=== PATIENT | female | born 1955 | race Caucasian/White ===

== ENCOUNTER 2019-03-11 08:14 | Emergency (ER) | payer OTHER ==
--- NOTE | 2019-03-11 08:29 | RAD ---
PQRS Compliance Statement: One or more of the following individualized dose reduction techniques were utilized for this examination: 1. Automated exposure control 2. Adjustment of the mA and/or kV according to patient size 3. Use of iterative reconstruction technique CT head without contrast 03/11/2019 8:11 AM INDICATION: Lower extremity numbness COMPARISON: None available TECHNIQUE: Multiple axial CT images of the head were obtained from skull base through the vertex without intravenous contrast. FINDINGS: Head: Ventricles, sulci and basal cisterns are within normal limits. There is no hydrocephalus. Maradiaga-white matter differentiation is normal. There is no acute intracranial hemorrhage. There is no mass, mass effect or midline shift. Posterior fossa is normal in appearance. Visualized portions of the orbits are normal. Paranasal sinuses are well aerated. Mastoid air cells are well aerated. Scalp and calvaria are normal. IMPRESSION: No acute intracranial hemorrhage. FOR INTERNAL CODING PURPOSES Critical result: Findings discussed with ERIKA URIARTE at 03/11/2019 8:26 AM. RESULT CODE: (C) Electronically signed by: July Andres MD (03/11/2019 8:26 AM) [facility]
--- NOTE | 2019-03-11 08:42 | PHYS DOC ---
Past Medical History Past Medical History: CVA, Hypertension, Migraines, Seizure Past Surgical History: No Surgical History Alcohol Use: None Drug Use: None Adult General Chief Complaint Chief Complaint: NEURO SYMPTOMS/DEFICITS [facility] HPI Patient is a 63 year old female who presents via EMS with complaining of bilateral lower extremity numbness and right upper extremity weakness. 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 Patient treated with 81 mg of aspirin at 0730 and 911 was called. Patient stated her lower extremity tingling resolved but still continuing to have weakness of right upper extremity. Patient states she had history of migraine headache and headache yesterday but did not have headache today. Patient states she had history of CVA, hypertension, dyslipidemia. Code stroke was activated at arrival of patient in the ER. Review of Systems Review of Systems Constitutional: Denies fever or chills [] Eyes: Denies change in visual acuity, redness, or eye pain [] HENT: Denies nasal congestion or sore throat [] Respiratory: Denies cough or shortness of breath [] Cardiovascular: No additional information not addressed in HPI [] GI: Denies abdominal pain, nausea, vomiting, bloody stools or diarrhea [] : Denies dysuria or hematuria [] Musculoskeletal: Denies back pain or joint pain [] Integument: Denies rash or skin lesions [] Neurologic: Denies headache, reports focal weakness ,sensory changes [] Endocrine: Denies polyuria or polydipsia [] All other systems were reviewed and found to be within normal limits, except as documented in this note. Current Medications Current Medications Current Medications Medications (Trade) Dose Ordered Sig/[facility] Start Time Stop Time Status Last Admin Dose Admin Aspirin (Children'S Aspirin) 243 mg 1X ONCE 03/11/19 09:30 03/11/19 09:31 DC 03/11/19 08:48 243 MG Allergies Allergies Allergies Coded Allergies Type Severity Reaction Last Updated Verified No Known Drug Allergies 03/11/19 No Physical Exam Physical Exam Constitutional: Well developed, well nourished, mild distress, non-toxic appearance. [] HENT: Normocephalic, atraumatic. Eyes: PERRLA, EOMI, conjunctiva normal, no discharge. [] Neck: Normal range of motion, no tenderness, supple, no stridor. [] Cardiovascular:Heart rate regular rhythm, no murmur [] Lungs & Thorax: Bilateral breath sounds clear to auscultation [] Abdomen: Bowel sounds normal, soft, no tenderness, no masses, no pulsatile masses. [] Skin: Warm, dry, no erythema, no rash. [] Back: No tenderness, no CVA tenderness. [] Extremities: No tenderness, no cyanosis, no clubbing, ROM intact, no edema. [] Neurologic: Alert and oriented X 3, no focal deficits noted. [] Psychologic: Affect normal, judgement normal, mood normal. [] Current Patient Data Vital Signs Vital Signs Date Time Temp Pulse Resp B/P (MAP) Pulse Ox O2 Delivery O2 Flow Rate FiO2 03/11/19 09:22 72 18 100 03/11/19 08:14 97.0 169/92 (117) Room Air 97.0 Lab Values Laboratory Tests Test 03/11/19 08:28 03/11/19 08:30 Glucose (Fingerstick) 109 mg/dL (70-99) H White Blood Count 4.6 x10^3/uL (4.0-11.0) Red Blood Count 4.04 x10^6/uL (3.50-5.40) Hemoglobin 13.1 g/dL (12.0-15.5) Hematocrit 39.0 % (36.0-47.0) Mean Corpuscular Volume 97 fL (79-100) Mean Corpuscular Hemoglobin 32 pg (25-35) Mean Corpuscular Hemoglobin Concent 34 g/dL (31-37) Red Cell Distribution Width 13.4 % (11.5-14.5) Platelet Count 176 x10^3/uL (140-400) Neutrophils (%) (Auto) 52 % (31-73) Lymphocytes (%) (Auto) 36 % (24-48) Monocytes (%) (Auto) 10 % (0-9) H Eosinophils (%) (Auto) 2 % (0-3) Basophils (%) (Auto) 1 % (0-3) Neutrophils # (Auto) 2.4 x10^3/uL (1.8-7.7) Lymphocytes # (Auto) 1.6 x10^3/uL (1.0-4.8) Monocytes # (Auto) 0.4 x10^3/uL (0.0-1.1) Eosinophils # (Auto) 0.1 x10^3/uL (0.0-0.7) Basophils # (Auto) 0.0 x10^3/uL (0.0-0.2) Prothrombin Time 12.8 SEC (11.7-14.0) Prothrombin Time INR 1.0 (0.8-1.1) Activated Partial Thromboplast Time 26 SEC (24-38) Sodium Level 145 mmol/L (136-145) Potassium Level 3.9 mmol/L (3.5-5.1) Chloride Level 106 mmol/L (98-107) Carbon Dioxide Level 27 mmol/L (21-32) Anion Gap 12 (6-14) Blood Urea Nitrogen 18 mg/dL (7-20) Creatinine 1.1 mg/dL (0.6-1.0) H Estimated GFR (Cockcroft-Gault) 50.3 BUN/Creatinine Ratio 16 (6-20) Glucose Level 108 mg/dL (70-99) H Calcium Level 9.3 mg/dL (8.5-10.1) Magnesium Level 2.1 mg/dL (1.8-2.4) Total Bilirubin 0.4 mg/dL (0.2-1.0) Aspartate Amino Transferase (AST) 16 U/L (15-37) Alanine Aminotransferase (ALT) 15 U/L (14-59) Alkaline Phosphatase 65 U/L (46-116) Creatine Kinase 119 U/L (26-192) Troponin I Quantitative < 0.017 ng/mL (0.000-0.055) Total Protein 7.1 g/dL (6.4-8.2) Albumin 4.2 g/dL (3.4-5.0) Albumin/Globulin Ratio 1.4 (1.0-1.7) Laboratory Tests 03/11/19 08:30 Laboratory Tests 03/11/19 08:30 EKG EKG EKG interpreted by me. Showed normal sinus rhythm at rate of 74, left atrial abnormality, normal OH and QT interval as, no acute ST and T-wave abnormalities. Radiology/Procedures Radiology/Procedures [][facility] [address] [place] [address] IMAGING REPORT Signed PATIENT: DEANN SMART ACCOUNT: [id number] : 1955 LOCATION: ER AGE: 63 SEX: F EXAM STATUS: PRE ER ORD. PHYSICIAN: ERIKA URIARTE MD REASON: lower extremity numbness ED EXT 4180 PROCEDURE: CT CODE STROKE HEAD WO PQRS Compliance Statement: One or more of the following individualized dose reduction techniques were utilized for this examination: 1. Automated exposure control 2. Adjustment of the mA and/or kV according to patient size 3. Use of iterative reconstruction technique CT head without contrast 03/11/2019 8:11 AM INDICATION: Lower extremity numbness COMPARISON: None available TECHNIQUE: Multiple axial CT images of the head were obtained from skull base through the vertex without intravenous contrast. FINDINGS: Head: Ventricles, sulci and basal cisterns are within normal limits. There is no hydrocephalus. Maradiaga-white matter differentiation is normal. There is no acute intracranial hemorrhage. There is no mass, mass effect or midline shift. Posterior fossa is normal in appearance. Visualized portions of the orbits are normal. Paranasal sinuses are well aerated. Mastoid air cells are well aerated. Scalp and calvaria are normal. IMPRESSION: No acute intracranial hemorrhage. FOR INTERNAL CODING PURPOSES Critical result: Findings discussed with ERIKA URIARTE at 03/11/2019 8:26 AM. RESULT CODE: (C) Electronically signed by: Oliver Antonio MD (03/11/2019 8:26 AM) [facility] DICTATED and SIGNED BY: OLIVER ANTONIO MD DATE: 03/11/19 0826 Course & Med Decision Making Course & Med Decision Making Pertinent Labs and Imaging studies reviewed. (See chart for details) Evaluation of patient in ER showed 64-year-old female patient brought in by EMS because of acute focal neuro deficit with activation of code stroke. Patient had NIHS 0 and was not a candidate for TPA. Patient symptoms resolved arrival to ER. Patient had unremarkable physical exam and labs and CT head and felt better. Patient feels comfortable to go home. Patient was advised to follow-up with on-call neurologist. Dragon Disclaimer Dragon Disclaimer This electronic medical record was generated, in whole or in part, using a voice recognition dictation system. Departure Departure Impression: Primary Impression: TIA (transient ischemic attack) Disposition: 01 HOME, SELF-CARE (at 1000) Condition: IMPROVED Referrals: CASSANDRA BUCIO MD Patient Instructions: Transient Ischemic Attack Additional Instructions: Drink plenty of liquids Follow-up with your primary care physician in 3-5 days Return to ER if not getting better Follow-up with on-call neurologist in 2 or 3 days NIHSS Stroke Scale NIH Stroke Scale: NIH Stroke Scale Response (Comments) Value Level of Consciousness: 0 Alert/Responsive 0 LOC Questions: 0 Answers both correctly 0 LOC Commands: 0 Performs both tasks 0 Best Gaze: 0 Normal 0 Visual: 0 No visual loss 0 Facial Palsy: 0 Normal, symmetrical 0 Motor - Left Arm 0 No drift 0 Motor - Right Arm 0 No drift 0 Motor - Left Leg 0 No drift 0 Motor: Right Leg 0 No drift 0 Limb Ataxia: 0 Absent 0 Sensory: 0 No loss 0 Best Language: 0 Normal 0 Dysathria: 0 Normal 0 Extinction and Inattention: 0 Normal 0 Total 0 Critical Care Time Critical care time was 60 minutes exclusive of procedures. ERIKA URIARTE MD Mar 11, 2019 08:42
[2019-03-11 08:44] LABS: BASO % 1 % (0-3); EOS # 0.1 x10^3/uL (0.0-0.7); EOS % 2 % (0-3); HEMOGLOBIN 13.1 g/dL (12.0-15.5); LYMPH # 1.6 x10^3/uL (1.0-4.8); LYMPH % 36 % (24-48); MEAN CORPUSCULAR HEMOGLOBIN 32 pg (25-35); MEAN CORPUSCULAR HGB CONC 34 g/dL (31-37); MEAN CORPUSCULAR VOLUME 97 fL (79-100); MONO # 0.4 x10^3/uL (0.0-1.1); MONO % 10 % (0-9); NEUT # 2.4 x10^3/uL (1.8-7.7); NEUT % 52 % (31-73); PLATELET COUNT 176 x10^3/uL (140-400); RED BLOOD COUNT 4.04 x10^6/uL (3.50-5.40); RED CELL DISTRIBUTION WIDTH 13.4 % (11.5-14.5); WHITE BLOOD COUNT 4.6 x10^3/uL (4.0-11.0)
[2019-03-11 08:53] LABS: PROTHROMBIN TIME PATIENT 12.8 SEC (11.7-14.0)
[2019-03-11 08:55] LABS: CALCIUM 9.3 mg/dL (8.5-10.1); CREATININE 1.1 mg/dL (0.6-1.0); GFR 50.3; POTASSIUM 3.9 mmol/L (3.5-5.1)
[2019-03-11 09:01] LABS: ALBUMIN 4.2 g/dL (3.4-5.0); ALBUMIN/GLOBULIN RATIO 1.4 (1.0-1.7); MAGNESIUM 2.1 mg/dL (1.8-2.4); TOTAL BILIRUBIN 0.4 mg/dL (0.2-1.0); TOTAL PROTEIN 7.1 g/dL (6.4-8.2)
--- NOTE | 2019-03-11 09:09 | EKG ---
[facility] [address] [place] [address] Test Date: 2019-03-11 Test Time: 08:24:11 Pat Name: MAUDE SMART Department: Room: Gender: F [employer]er: : 1955 Requested By: ERIKA URIARTE Order Number: [id number] Reading MD: Measurements Intervals [place] Rate: 74 P: 26 DC: 180 QRS: 8 QRSD: 86 T: 46 QT: 378 QTc: 425 Interpretive Statements SINUS RHYTHM LEFT ATRIAL ABNORMALITY LOW LIMB LEAD VOLTAGE ABNORMAL ECG RI6.01 No previous ECG available for comparison
[2019-03-11 09:22] VITALS: BP 143/89
[2019-03-11] MEDS ORDERED: ASPIRIN CHEWABLE 81 MG TABLET. PO ONE (09:30)
== END 2019-03-11 10:08 | disposition home or self-care (01) ==
LOC: EDBD 08:14 → ER 08:14
DX: G45.9 Transient cerebral ischemic attack, unspecified (principal); I10 Essential (primary) hypertension; E78.5 Hyperlipidemia, unspecified; G43.909 Migraine, unspecified, not intractable, without status migrainosus; Z86.73 Personal history of transient ischemic attack (TIA), and cerebral infarction without residual deficits
CPT/HCPCS: 36415; 70450; 80053; 82550; 82962; 83735; 84484; 85025; 85610; 85730; 93005; 99291-25